=== PATIENT | male | born 1955 | race African-American/Black ===

== ENCOUNTER 2017-06-10 15:15 | Observation (INO) | payer MEDICARE, MEDICAID ==
--- NOTE | 2017-06-10 16:14 | RAD ---
SINGLE VIEW OF THE CHEST: Comparison: 07-20-15 History: Chest pain radiating to the left arm. FINDINGS: Single view of the chest shows a normal sized cardiomediastinal silhouette. There is no evidence of c onsolidation, mass, or pleural effusion. The bones are unremarkable. IMPRESSION: No evidence of acute cardiopulmonary disease. POS: [facility]
[2017-06-10 16:40] LABS: #Basophils 0.1 thou/uL (0.0-0.2); #Eosinphils 0.1 thou/uL (0.0-0.7); #Lymphocytes 2.6 thou/uL (1.20-3.40); #Monocytes 0.6 thou/uL (0.11-0.59); #Neutrophils 2.9 thou/uL (1.40-6.50); %Basophils 1.1 % (0.0-1.0); %Eosinophils 1.5 % (0.0-10.0); %Lymphocytes 40.9 % (21.0-51.0); %Monocytes 10.2 % (0.0-10.0); Hematocrit 42.7 % (42.0-52.0); Mean Platelet Volume 6.7 fL (7.4-10.4); Red Blood Cell (RBC) Count 5.05 mill/uL (4.70-6.10); White Blood Cell (WBC) Count 6.2 thou/uL (4.8-10.8)
[2017-06-10 17:02] LABS: ALT (SGPT) 31 U/L (8-55); AST (SGOT) 21 U/L (5-34); Alkaline Phosphatase 112 U/L (40-150); Anion Gap 14 mmol/L (10-20); BUN (Urea Nitrogen) 18 mg/dL (8.4-25.7); Bilirubin, Total 0.3 mg/dL (0.2-1.2); CK (CPK) 292 U/L (30-200); Calc. Creatinine Clearance 0 mL/min (70-130); Calcium 9.5 mg/dL (7.8-10.44); Carbon Dioxide 26 mmol/L (23-31); Chloride 103 mmol/L (98-107); Estimated GFR-MDRD 81; Globulin 3.7 g/dL (2.4-3.5)
[2017-06-10 17:06] LABS: Troponin I Less than 0.010 ng/mL (< 0.028)
[2017-06-10] MEDS ORDERED: Ondansetron HCl/PF 4 MG/2 ML Vial IVP PRN (19:05)
[2017-06-10] MEDS ORDERED: Ondansetron ODT 4 MG TAB SL PRN (19:05)
[2017-06-10] MEDS ORDERED: HYDROcodone/Acetaminophen 5/325 mg Tablet PO PRN (19:53)
[2017-06-10] MEDS ORDERED: Acetaminophen 325 MG TAB PO PRN (19:53)
[2017-06-10] MEDS ORDERED: Nitroglycerin 0.4 MG TAB (25 Tab Bottle) PO PRN (19:53)
[2017-06-10] MEDS ORDERED: Insulin Regular 300 UNITS/3 ML VIAL SC PRN (20:03)
[2017-06-10] MEDS ORDERED: Dextrose 50% Abboject 50 ML SYRINGE SLOW IVP PRN (20:03)
[2017-06-10] MEDS ORDERED: Dextrose 5% in Water 1,000 ML IV PRN (20:03)
[2017-06-10 20:15] VITALS: BMI 38.7
[2017-06-10 20:37] LABS: Troponin I Less than 0.010 ng/mL (< 0.028)
[2017-06-10] MEDS ORDERED: Atorvastatin Calcium 40 MG TAB PO SCH (21:00)
[2017-06-10] MEDS: Famotidine 20 MG TAB PO SCH (21:21)
[2017-06-10] MEDS: Glimepiride 1 MG TAB PO SCH (21:21)
--- NOTE | 2017-06-10 22:00 | HP ---
DATE OF ADMISSION: 06/10/2017 ADMITTING PHYSICIAN: Mele Valladares M.D. PRIMARY CARE PHYSICIAN: Rafiq. CHIEF COMPLAINT: Left shoulder and chest pain. HISTORY OF PRESENT ILLNESS: The patient is a 62-year-old male with known history of coronary artery disease, diabetes, and dyslipidemia. The patient reports that he came in because he has been experie ncing left shoulder pain, neck pain, and epigastric pain for 3 to 4 days. The patient reports that t he left arm and shoulder pain is made worse by elevating his left arm. This is reproducible on my ex am, he is unable to lift his arm above approximately 75 degrees because of pain that he feels in the shoulder as well as the neck. He reports this is consistent with the pain that brought him in, but shai perez reports a different pain in the epigastric area that is described as sharp and constant for approxi mately 2 to 3 days. He also reports some shortness of breath and some diaphoresis. He denies nausea and vomiting. REVIEW OF SYSTEMS: The following complete review of systems was negative, unless otherwise mentioned in the HPI or below: Constitutional: Weight loss or gain, sense of well-being, ability to conduct usual activities, exerc ise tolerance. Skin/Breast: Rash, itching, changes in hair growth or loss, nail changes, breast lumps, tenderness, swelling, nipple discharge. Eyes: Vision, double vision, tearing, blind spots, pain. ENT/Mouth: Headaches (location, time of onset, duration, precipitating factors), vertigo, lightheade dness, injury. Vision, double vision, tearing, blind spots, pain, nose bleeding, colds, obstruction, discharge, dental difficulties, gingival bleeding, dentures, neck stiffness, pain, tenderness, masses in thyroid or other areas. Cardiovascular: Precordial pain, substernal distress, palpitations, syncope, dyspnea on exertion, or thopnea, nocturnal paroxysmal dyspnea, edema, cyanosis, hypertension, heart murmurs, varicosities, ph lebitis, claudication. Respiratory: Pain, shortness of breath, wheezing, stridor, cough, hemoptysis, fever or night sweats. Gastrointestinal: Poor appetite, dysphagia, indigestion, abdominal pain, heartburn, eructation, naus ea, vomiting, hematemesis, jaundice, constipation, or diarrhea, abnormal stools (cindy-colored, tarry, bloody, greasy, foul smelling), flatulence, hemorrhoids, recent changes in bowel habits. Genitourinary: Urgency, frequency, dysuria, nocturia, hematuria, polyuria, oliguria, unusual (or rigoberto nge in) color of urine, stones, hesitancy, change in size of stream, dribbling, acute retention or in continence, libido, potency. Musculoskeletal: Pain, swelling, redness or heat of muscles or joints, limitation, of motion, muscul ar weakness, atrophy, cramps. Neurologic/Psychiatric: Convulsions, paralyses, tremor, incoordination, paresthesias, difficulties w ith memory of speech, sensory or motor disturbances, or muscular coordination (ataxia, tremor), emoti onal problems, anxiety, depression, previous psychiatric care, unusual perceptions, hallucinations. Allergy/Immunologic: Skin rash, anemia, bleeding tendency, polydipsia, polyuria, intolerance to heat or cold. PAST MEDICAL HISTORY: Significant for diabetes type 2, hypertension, coronary artery disease with st ent placement and obesity. PAST SURGICAL HISTORY: None. PSYCHIATRIC HISTORY: Includes depression. SOCIAL HISTORY: He denies drug use, alcohol use and no smoking. HOME MEDICATIONS: Please see medication rec list. DRUG ALLERGIES: No known drug allergies. PHYSICAL EXAMINATION: VITAL SIGNS: Temperature of 98.0, blood pressure 136/84, pulse 74, respirations 20, satting 96% on r oom air. GENERAL: He is in no acute distress, nontoxic, pleasant, cooperative. HEENT: Normocephalic, atraumatic. EYES: PERRL. Extraocular muscles intact. NECK: No JVD, no cervical adenopathy. Full range of motion. LUNGS: Clear to auscultation bilaterally. CARDIAC: Regular rate and rhythm with a 2/6 systolic ejection murmur. ABDOMEN: Morbidly obese, but nontender, nondistended, positive bowel sounds. EXTREMITIES: No clubbing, cyanosis or edema. NEUROLOGIC: Full range of motion of all extremities, no focal deficits. Alert and oriented x3. LABORATORY DATA AND IMAGES: CBC shows a white count of 6.2, hemoglobin 14.1, hematocrit 42.7, platel ets 218,000. Cardiac enzymes, creatine kinase 292, CK-MB 2.6, troponin I less than 0.01 x2. Albumin 4.3. BMP shows a sodium of 139, potassium 3.9, chloride 103, BUN 18, creatinine 1.12, glucose 317. Chest x-ray shows a normal size cardiomediastinal silhouette. No evidence of consolidation, mass or pleural effusion. ASSESSMENT: 1. Chest pain, rule out acute coronary syndrome. 2. Diabetes type 2, uncontrolled. 3. Hypertension. 4. Coronary artery disease. PLAN: The patient will be admitted to observation. We will perform additional cardiac enzymes to ru le out acute coronary syndrome. In light of the reproducible pain exacerbated by left arm movement, this is most likely musculoskeletal in nature. The patient also has a history of GERD and has been t reated with H2 inhibitors. We will give the patient IV Pepcid to assist in alleviating the epigastri c pain. Cardiology will be consulted if deemed necessary.
[2017-06-10 22:50] LABS: Troponin I Less than 0.010 ng/mL (< 0.028)
[2017-06-11 05:18] LABS: #Basophils 0.1 thou/uL (0.0-0.2); #Eosinphils 0.1 thou/uL (0.0-0.7); #Lymphocytes 2.3 thou/uL (1.20-3.40); #Monocytes 0.6 thou/uL (0.11-0.59); #Neutrophils 2.4 thou/uL (1.40-6.50); %Basophils 1.4 % (0.0-1.0); %Eosinophils 2.2 % (0.0-10.0); %Lymphocytes 41.9 % (21.0-51.0); %Monocytes 10.4 % (0.0-10.0); Hematocrit 40.2 % (42.0-52.0); Mean Platelet Volume 6.9 fL (7.4-10.4); Red Blood Cell (RBC) Count 4.75 mill/uL (4.70-6.10); White Blood Cell (WBC) Count 5.5 thou/uL (4.8-10.8)
[2017-06-11 05:27] LABS: Anion Gap 10 mmol/L (10-20); BUN (Urea Nitrogen) 13 mg/dL (8.4-25.7); Calc. Creatinine Clearance 135 mL/min (70-130); Calcium 9.1 mg/dL (7.8-10.44); Carbon Dioxide 26 mmol/L (23-31); Chloride 105 mmol/L (98-107); Estimated GFR-MDRD Greater than 90
[2017-06-11 07:42] VITALS: BP 135/78; TEMP 98.2
[2017-06-11] MEDS: Famotidine 20 MG TAB PO SCH (08:45)
[2017-06-11] MEDS: Glimepiride 1 MG TAB PO SCH (08:45)
[2017-06-11] MEDS ORDERED: Losartan Potassium 25 MG TAB PO SCH (09:00)
[2017-06-11] MEDS ORDERED: Alogliptin 25 MG TAB PO SCH (09:00)
[2017-06-11] MEDS ORDERED: Clopidogrel Bisulfate 75 MG TAB PO SCH (09:00)
--- NOTE | 2017-06-11 12:35 | PDOC.EVN ---
Event Note - Event Note Event Note: Pt left AMA today before I could see him.
--- NOTE | 2017-06-19 16:01 | EKG ---
Test Reason : Blood Pressure : / mmHG Vent. Rate : 082 BPM Atrial Rate : 082 BPM P-R Int : 176 ms QRS Dur : 084 ms QT Int : 360 ms P-R-T Axes : 050 -11 -04 degrees QTc Int : 420 ms Normal sinus rhythm Nonspecific T wave abnormality No STEMI Abnormal ECG Confirmed by PERRY BAZAN, KIRAN ([id number]), editor newspaper AILEEN CEBALLOS ([id number]) on 06/19/2017 4:00:55 PM Referred By: Confirmed By:KIRAN AMADOR MD
== END 2017-06-11 12:05 | disposition left against medical advice (07) ==
LOC: ERS 15:15 → 2SW 18:54
PROVIDERS: ADMIT Internal Medicine Addiction Medicine; ATTEND Internal Medicine Addiction Medicine
DX: R07.89 Other chest pain (principal); Z53.21 Procedure and treatment not carried out due to patient leaving prior to being seen by health care provider; I25.10 Atherosclerotic heart disease of native coronary artery without angina pectoris; I10 Essential (primary) hypertension; E11.65 Type 2 diabetes mellitus with hyperglycemia; E78.5 Hyperlipidemia, unspecified; K21.9 Gastro-esophageal reflux disease without esophagitis; F32.9 Major depressive disorder, single episode, unspecified; E66.9 Obesity, unspecified; Z68.38 Body mass index [BMI] 38.0-38.9, adult; Z79.84 Long term (current) use of oral hypoglycemic drugs; Z79.899 Other long term (current) drug therapy; Z95.5 Presence of coronary angioplasty implant and graft
CPT/HCPCS: 71010; 80048; 80053; 82550; 82553; 82962 ×2; 83880; 84484 ×2; 85025 ×2; 93005; 94760; 96360; 99285; G0378; 36415; 36416; A4216

== ENCOUNTER 2017-09-09 07:52 | Outpatient (CLI) | payer MEDICARE, MEDICAID ==
--- NOTE | 2017-09-09 09:32 | MRI ---
MRI LUMBAR SPINE: DATE: 09/09/17. PROVIDED CLINICAL HISTORY: Low back pain. FINDINGS: Comparison is made with the study dated 02/26/16. Five lumbar vertebral bodies are again seen. Lumba r alignment remains normal. Vertebral body heights appear preserved. No focal concerning regional m arrow signal abnormality is apparent. The visualized extraspinal soft tissues appear unremarkable. The conus medullaris is normal in signal and terminates at an appropriate level. At L1-2, there is no significant central canal or foraminal narrowing apparent. At L2-3, there is no significant central canal or foraminal narrowing apparent. At L3-4, there is mild bilateral facet arthritis without significant central canal or foraminal narro wing. At L4-5, there is bilateral facet arthritis without significant foraminal or canal narrowing apparent . At L5-S1, there is conspicuity to the epidural fat which circumferentially attenuates the thecal sac, similar to the prior examination. There is a broad-based disk bulge which does not further attenuat e the thecal sac. There is bilateral facet arthritis. There is mild bilateral foraminal narrowing. IMPRESSION: Lower lumbar spine facet arthritis and caudal epidural lipomatosis, appearing similar to the prior [facility]. POS: [facility]
--- NOTE | 2017-09-09 10:24 | MRI ---
MRI OF CERVICAL SPINE WITHOUT CONTRAST: DATE: 09/09/17. COMPARISON: 02/26/16. HISTORY: Chronic neck pain radiating down both shoulders and arms for 4 years. TECHNIQUE: Multiplanar, multisequence MR imaging of the cervical spine is provided without contrast media. FINDINGS: The sagittal STIR imaging demonstrates no focal area of osseous marrow edema. Incompletely imaged encephalomalacia/volume loss is noted within the cerebellar hemisphere on the lef t, a stable finding. There is moderate degenerative change at the atlantoaxial interspace. The craniocervical junction ap pears intact. There is straightening of the normal cervical lordosis. There is no anterolisthesis or retrolisthesi s present. C2-3: There is disk desiccation. There is no central canal stenosis. There is bilateral facet and uncovertebral osteophyte formation, left greater than right, with mild left neural foraminal stenosis . No significant right neural foraminal stenosis. C3-4: There is disk desiccation and mild disk bulge with partial effacement of the ventral thecal sa c and mild central canal stenosis. There is mild facet and uncovertebral osteophyte formation, left greater than right. There is mild to moderate left neural foraminal stenosis. No right neural kenny inal stenosis. C4-5: There is disk space narrowing, disk desiccation, anterior osteophyte formation, and disk bulge . This effaces the ventral thecal sac. There is a superimposed central disk protrusion which abuts the ventral aspect of the cervical cord. This is similar when compared to the prior examination and leads to a mild/moderate degree of central canal stenosis. Bilateral facet and uncovertebral osteoph yte formation noted, left greater than right. Mild right and severe left neural foraminal stenosis n oted. C5-6: There is disk space narrowing, disk desiccation, and disk bulge present. There is a right par acentral/right foraminal disk protrusion, similar when compared to the prior exam. There is prominen t bilateral facet and uncovertebral osteophyte formation. There is moderate central canal stenosis, especially laterally on the right. There is severe bilater al neural foraminal stenosis, left greater than right. C6-7: There is disk space narrowing and disk desiccation with mild disk bulge and partial effacement of the ventral thecal sac with associated mild central canal stenosis. There is prominent left face t and uncovertebral osteophyte formation with severe left neural foraminal stenosis. There is mild t o moderate right neural foraminal stenosis on the basis of osteophyte formation. C7-T1: Bilateral facet and uncovertebral osteophyte formation with mild bilateral neural foraminal s tenosis. No significant central canal stenosis. There is no abnormal signal intensity identified within the cervical cord. IMPRESSION: Multilevel degenerative change as described above, with multiple areas of associated central canal an d neural foraminal stenosis. POS: [facility]
== END 2017-09-09 07:53 | disposition home or self-care (01) ==
LOC: SCSMRI 07:52
PROVIDERS: ATTEND Pain Medicine Interventional Pain Medicine
DX: M54.2 Cervicalgia (principal); M54.5 Low back pain; M47.892 Other spondylosis, cervical region; M47.896 Other spondylosis, lumbar region; M48.02 Spinal stenosis, cervical region; E88.2 Lipomatosis, not elsewhere classified
CPT/HCPCS: 72141; 72148

== ENCOUNTER 2018-11-09 08:04 | Outpatient (CLI) | payer MEDICARE, MEDICAID ==
--- NOTE | 2018-11-09 08:33 | RAD ---
EXAM: 5 views of the cervical spine HISTORY: Cervical stenosis and radicular pain COMPARISON: None FINDINGS: AP, lateral, swimmer's, and flexion/extension views of the cervical spine shows normal heig ht and alignment of the vertebral bodies and intervertebral discs without fracture or subluxation. Degenerative changes are seen in the mid to lower cervical spine with anterior osteophytes present. A lignment is unchanged with flexion and extension. No prevertebral soft tissue swelling is seen. IMPRESSION: Degenerative changes of the lower cervical spine with unchanged alignment with bending
--- NOTE | 2018-11-09 10:15 | MRI ---
MRI CERVICAL SPINE WITHOUT CONTRAST: HISTORY: M54.12, cervical radicular pain. COMPARISON: Cervical spine MRI from 2018. Radiograph of same day. FINDINGS: There is a low-grade increased T2 signal within the cord at the level of C4-5. Cerebellar tonsils te rminate at the level of the foramen magnum. No paraspinal adenopathy. Paraspinal musculature is normal. There is encephalomalacia inferior left cerebellum, likely prior vascular infarct. No marrow infiltrative process. Levels are as follows: C2-3: Circumferential disk bulge. Mild facet arthrosis. No neural foraminal or spinal canal narrow ing. C3-4: Moderate disk desiccation. Circumferential disk-osteophyte complex greatest in the left later al recess and subforaminal zone. Moderate to severe left and mild right neural foraminal narrowing. Moderate left facet arthropathy. There is minimal effacement of the CSF space. C4-5: Circumferential disk-osteophyte complex. In the central and bilateral paracentral zones, ther e is abutment of the cord. There is spinal canal narrowing to approximately 5 mm. There is extensio n of the posterior disk-osteophyte complex in the left lateral recess and subforaminal zones with sev ere left-sided neural foraminal narrowing. Moderate facet arthropathy contributing to this neural fo raminal narrowing. Mild right-sided neural foraminal narrowing. C5-6: Circumferential disk-osteophyte complex. This is greatest in the central and bilateral subfor aminal zones. Moderate facet arthrosis. There is abutment of the cord. The spinal canal is narrowe d to approximately 7 mm. There is moderate to severe bilateral neural foraminal narrowing, worse on the left. C6-7: Circumferential disk-osteophyte complex greatest in the left subforaminal and extraforaminal z one. Severe left-sided neural foraminal narrowing. Moderate right-sided neural foraminal narrowing. Moderate bilateral facet arthropathy. Mild effacement of the ventral CSF space of the spinal canal measuring approximately 8 mm. IMPRESSION: Multilevel neural foraminal and spinal canal narrowing as described with cord abutment as well as low -grade increased T2 signal within the cord at the level of C4-5. POS: [facility]
== END 2018-11-09 08:05 | disposition home or self-care (01) ==
LOC: BICMRI 08:04
PROVIDERS: ATTEND Neurological Surgery
DX: M47.22 Other spondylosis with radiculopathy, cervical region (principal); M50.20 Other cervical disc displacement, unspecified cervical region; M48.02 Spinal stenosis, cervical region
CPT/HCPCS: 72050; 72141

== ENCOUNTER 2019-03-13 07:53 | Outpatient (CLI) | payer MEDICARE, MEDICAID ==
[2019-03-13 11:47] LABS: Hemoglobin 13.9 g/dL (14.0-18.0); Mean Corpuscular HGB CONC 33.1 g/dL (32.0-36.0); Mean Corpuscular Hemoglobin 27.5 pg (27.0-31.0); Mean Corpuscular Volume 83.1 fL (78.0-98.0); Platelet Count 223 thou/uL (130-400); RBC Distribution Width 13.4 % (11.5-14.5); Red Blood Cell (RBC) Count 5.07 mill/uL (4.70-6.10); White Blood Cell (WBC) Count 7.3 thou/uL (4.8-10.8)
[2019-03-13 11:53] LABS: PTT 27.6 SEC (22.9-36.1); Prothrombin Time 13.4 SEC (12.0-14.7)
== END 2019-03-13 07:54 | disposition home or self-care (01) ==
LOC: LABBT 07:53
PROVIDERS: ATTEND Neurological Surgery
DX: Z01.812 Encounter for preprocedural laboratory examination (principal); M50.10 Cervical disc disorder with radiculopathy, unspecified cervical region; M50.00 Cervical disc disorder with myelopathy, unspecified cervical region
CPT/HCPCS: 85027; 85610; 85730

== ENCOUNTER 2019-03-13 08:30 | Inpatient (IN) | payer MEDICARE, MEDICAID ==
--- NOTE | 2019-03-13 07:37 | HP ---
HISTORY OF PRESENT ILLNESS: Mr. Candelaria is a 64-year-old male, who reports to our office for evaluation of upper and lower extremity pain. 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 The patient states it is a pain from top of the spine to the bottom of his feet and states it is equal on both sides and there is numbness and tingling. He states that he has pain in his low back, back of both legs to the bottom and top of his feet. He has numbness and tingling in his toes. The patient states that the pain gets in the way of daily activities. Walking is worse and lying down is best. The patient states that there is pain down the back of both arms to fingertips. He has decreased sensation of pinky, compared to right. The patient has had injections in the low back with Dr. Damon. REVIEW OF SYSTEMS: A 10-point review of systems has been completed and is negative other than stated in the above HPI. PAST MEDICAL HISTORY: Depression, hypertension, diabetes, cardiovascular disease, osteoarthritis, shoulder pain, hyperlipidemia, anxiety, history of stroke. PAST SURGICAL HISTORY: Right shoulder surgery, cardiac stents placed. FAMILY HISTORY: Father is , diagnosed with heart disease, stroke. Mother is , diagnosed with heart disease, stroke. SOCIAL HISTORY: The patient is a former smoker. Denies alcohol or drug use. He is single and not working currently. MEDICATIONS: 1. Aspirin. 2. Carbamazepine. 3. Tizanidine. 4. . 5. Lipitor. 6. Doxepin. 7. Bupropion. ALLERGIES: NO KNOWN DRUG ALLERGIES. PHYSICAL EXAMINATION: CONSTITUTIONAL: The patient is alert and oriented x3, appears nontoxic. RESPIRATIONS: Normal work of breathing on room air. NECK: Soft, supple. No masses are noted. Range of motion is intact and nonpainful. NEUROLOGIC: Awake, alert, oriented x3. Memory, attention, fund of knowledge normal. Cranial nerves 2 through 12 were tested and intact. Upper extremities, 5/5 strength in bilateral deltoids, biceps, triceps, wrist extension, finger extension, finger intrinsics. Decreased sensation in left pinky compared to right. Reflexes symmetric. Spurling is positive. Left positive Tinel's, ulnar and median bilaterally. Lower extremity 5/5 bilateral strength, hip flexion, hip extension, knee flexion, knee extension, dorsiflexion, plantar flexion, EHL. No radiculopathy. Positive single leg raise left rotation tender to palpate lumbar spine. Patellar reflexes. No Babinski. No clonus. Gait and station, sit to standing normal. Normal gait. IMAGING: MRI cervical spine, herniated nucleus pulposus with stenosis C4 through C6, foraminal stenosis C6-C7. Flexion-extension x-rays, no instability seen on cervical spine. ASSESSMENT AND PLAN: Cervical stenosis with myelopathy. Dr. Wills has offered ACDF C4-C5, C5-C6 and C6-C7. The patient states that he understands risks of the procedure and is willing to proceed. Job ID: [id number]
[2019-03-13 10:48] VITALS: BMI 37.1
[2019-03-14] MEDS ORDERED: Sodium Chloride 0.9% 20 ML ONE (06:17)
[2019-03-14] MEDS ORDERED: Thrombin 5000 UNITS/5 ML VIAL ONE (06:17)
[2019-03-14 06:41] LABS: Anion Gap 12 mmol/L (10-20); BUN (Urea Nitrogen) 24 mg/dL (8.4-25.7); Calc. Creatinine Clearance 92 mL/min (70-130); Carbon Dioxide 23 mmol/L (23-31); Chloride 108 mmol/L (98-107); Estimated GFR-MDRD 73; Glucose 206 mg/dL (80-115); Potassium 3.8 mmol/L (3.5-5.1); Sodium 139 mmol/L (136-145)
[2019-03-14] MEDS ORDERED: SUGAMMADEX SODIUM 200 MG/2 ML VIAL ONE (06:47)
[2019-03-14] MEDS ORDERED: Fentanyl 100 MCG/2 ML VIAL ONE ×2 (07:14→12:54)
[2019-03-14] MEDS ORDERED: Bupivacaine HCl 0.5%/Epinephrine 1:200,000/PF 30 ml Vial ONE (10:44)
[2019-03-14] MEDS ORDERED: Rocuronium Bromide 50 MG/5 ML VIAL ONE (11:23)
[2019-03-14] MEDS ORDERED: Mag-Al 1200 mg/1200 mg/30 ML UDCUP PO PRN (13:51)
[2019-03-14] MEDS ORDERED: Milk Of Magnesia 30 ML UDCUP PO PRN (13:51)
[2019-03-14] MEDS ORDERED: diphenhydrAMINE 25 MG CAP PO PRN (13:51)
[2019-03-14] MEDS ORDERED: traMADol HCl 50 MG TAB PO PRN (13:51)
[2019-03-14] MEDS ORDERED: tiZANidine HCl 4 MG TAB PO PRN (13:51)
[2019-03-14] MEDS ORDERED: diphenhydrAMINE 50 MG/ML VIAL IVP PRN (13:51)
[2019-03-14] MEDS ORDERED: Ondansetron PF 4 MG/2 ML Vial IVP PRN (13:51)
[2019-03-14] MEDS ORDERED: Promethazine 25 MG TAB PO PRN (13:51)
[2019-03-14] MEDS ORDERED: Tamsulosin HCl 0.4 MG CAP PO PRN (13:51)
[2019-03-14] MEDS ORDERED: Morphine 2 MG/ML SYRINGE SLOW IVP PRN (13:51)
[2019-03-14] MEDS ORDERED: Promethazine HCl 25 MG/ML VIAL IM PRN (13:51)
[2019-03-14] MEDS ORDERED: Bisacodyl 10 MG SUPP PR PRN (13:51)
[2019-03-14] MEDS ORDERED: Acetaminophen/Codeine 30-300mg Tablet PO PRN ×2 (13:51)
[2019-03-14] MEDS ORDERED: Acetaminophen 325 MG TAB PO PRN (13:51)
[2019-03-14] MEDS ORDERED: HYDROcodone/Acetaminophen 10/325 mg Tablet PO PRN (13:55)
[2019-03-14] MEDS ORDERED: PROVENTIL INHALER 6.7 G (200 INHALATIONS) INH PRN (13:55)
--- NOTE | 2019-03-14 15:27 | OP ---
DATE OF PROCEDURE: 03/14/2019 VEST MAKER: Nayeli Green PA-C. PREOPERATIVE INDICATION: Prevent neurological deterioration. PREOPERATIVE DIAGNOSES: Cervical intervertebral disk disease with cord compression and myelopathy as well as cervical radiculopathy, C4-C5, C5-C6, C6-C7. POSTOPERATIVE DIAGNOSES: Cervical intervertebral disk disease with cord compression and myelopathy as well as cervical radiculopathy, C4-C5, C5-C6, C6-C7. PROCEDURES PERFORMED: 1. Anterior cervical diskectomy, intervertebral arthrodesis, 2. placement of intervertebral corticocancellous autograft, 3. harvest of hip graft, 4. anterior cervical plating, C4-C5, C5-C6, and C6-C7. 2. Local morselized autograft and morselized allograft placed around the hip graft. 3. Operating microscope. PREOPERATIVE MEDICATIONS: Ancef 2 g IV. DRAIN NUMBER: Zero. DRAIN TYPE: None. DESCRIPTION OF PROCEDURE: The patient was seen in the preoperative area. [employer] , his insurance company, has refused approval for placement of a PEEK interbody device. Machined cadaveric allograft was unavailable at this hospital. We offered the patient the use of fibular allograft we can cut to size, or autologous hip graft , and he wanted to proceed with hip autograft. This made some sense given his diabetes and he understood the extra time and risks of the procedure. After that discussion, we took him to the operating room. General endotracheal anesthesia was induced. The patient was carefully positioned on the operating table with his head supported by a donut-shaped headrest. A lateral fluoro radiograph was used to plan our neck incision. We planned out the hip incision over the superior portion of the iliac crest on the right side. The right side of the neck and the right hip was sterilely prepped and draped. We opened our neck incision with a 15 blade knife and controlled bleeding with bipolar cautery. We dissected sharply to the platysma and cut this muscle in line with our incision. We continued our dissection medial to the sternocleidomastoid and lateral to the trachea and esophagus. We arrived to the prevertebral space. We placed a marker on the spine and took a lateral fluoro radiograph to confirm the levels upon which we were operating. It was quickly obvious we had to separate the omohyoid muscle, so we did so and tagged it with sutures. We carefully dissected inferiorly all the way to C7 and superiorly to the top of C4. We mobilized the longus colli muscles and placed self-retaining retractors beneath them. We placed distraction pins at C4 and C6 and distracted across both of these intervening interspaces. We incised the interspaces with a 15 blade knife and removed disk contents using curettes and rongeurs. As we approached the posterior longitudinal ligament, we brought the operating microscope into the field. Under microscopic magnification and using microsurgical techniques, we removed the remainder of the intervertebral disk. We removed posterior osteophytes. We decompressed the dura from one neural foramen all the way to the other across the entire C4-C5 and C5-C6 interspaces respectively. We controlled the epidural bleeding with small pledgets of Gelfoam and prepared the endplates for grafting. We measured the height of the interspace to 8 mm at C4-C5 and 6 mm at C5-C6. We then turned our attention to harvesting the hip graft. Sterile sponges were left in the neck. We turned our attention to the hip. We opened our skin incision with a 10 blade knife and controlled bleeding with bipolar cautery. We dissected through subcutaneous tissue to the periosteum over the iliac crest. We made sure not to approach the anterior superior iliac spine, but from a 0.2 cm to a 0.5 cm behind that, we elevated the periosteum medially and laterally over the iliac crest with an oscillating saw. We created the ends of our hip graft with the osteotome, we fractured it off the ilium in a controlled fashion. We removed our hip graft, where there was extensive bony bleeding. We used Gelfoam to control, which was quite easily done. We infused local anesthetic in the surrounding musculature and left some local anesthetic on a sterile sponge in the wound while we shaped our hip graft. Using oscillating saw and a cutting table, we cut 2 portions of our hip grafts for placement into the intervertebral space. One was 8 mm tall and the other was 6. Both were shaped with lordosis. They were both advanced into their respective interspaces under radiographic guidance to the appropriate depth. We made sure of this depth by shaping our grafts, the same size as our trial devices for our PEEK spacers. We entered the intervertebral grafts in place. We removed our distraction pin from C4 and we removed our lateral retractors under the longus colli muscles to C6-C7. We placed a distraction pin at C7 and distracted across the C6-C7 interspace. We incised the interspace with a 15 blade knife and removed disk contents using curettes and rongeurs. We brought the operative microscope back into the field to remove the posterior longitudinal ligament, the posterior osteophytes, and decompress from one neural foramen all the way to the other across the entire C6-C7 interspace. The left neural foramen was particularly tight and required significant work on uncovertebral joint. At the completion of our decompression there, a small ball probe could pass out the foramen without anymore impingement. We turned our attention to arthrodesis. We prepared the endplates for grafting, measured the height of the interspace to 6.5 mm. The appropriate thickness bone graft was cut off our hip graft bone on the back table. We shaped it into lordosis and advanced it into the interspace under guidance to the appropriate depth. We used our trials from our PEEK devices to ensure that the depth of the appropriate. With the interbody graft in place, we removed our distraction pins. The operative microscope was taken out of the field. A 45-mm anterior cervical plate was brought into the field. We drilled harbor boat pilot holes through the plate into the vertebral bodies at C4, C5, C6, and C7, and we affixed the plate using 14-mm screws. We used fixed angle screws at C7 and variable angle screws at C4, C5, and C6. We engaged the locking mechanism over each of the 8 screws. AP and lateral fluoro radiographs confirmed adequate positioning of our instrumentation. We irrigated the wound copiously with bacitracin irrigation. We reattached the omohyoid muscles. We closed our cervical wound in anatomical layers. In a similar fashion, we closed the hip wound 1st by reapproximating the fascia over the bone and then closed in subcutaneous tissues and skin. Two clean dressings were applied. This was a clean case, no contamination. ADDENDUM: After the hip graft and interbody grafts were placed, and distraction pins were removed, a mixture of demineralized bone matrix and morselized autograft was placed into the interspaces on either side of the hip graft to promote fusion. The demineralized bone matrix was the allograft, and our morselized autograft came from the osteophytes removed during decompression, which were cleaned of soft tissue attachments, then morselized into the demineralized bone matrix. Job ID: [id number] [id number]
[2019-03-14] MEDS: Sodium Chloride 0.9% 1,000 ML IV SCH (18:03)
[2019-03-14] MEDS: CEFAZOLIN 2 GM in Premix Bag 1 BAG IVPB SCH ×2 (18:03→22:09)
[2019-03-14] MEDS: Morphine 4 MG/ML VIAL SLOW IVP PRN ×2 (18:09→22:15)
[2019-03-14] MEDS: traMADol HCl 50 MG TAB PO PRN (20:48)
[2019-03-14] MEDS ORDERED: FLUoxetine HCl 20 MG CAP PO SCH (21:00)
[2019-03-14] MEDS ORDERED: Atorvastatin Calcium 10 MG TAB PO SCH (21:00)
[2019-03-14] MEDS ORDERED: Dextrose 50% Abboject 50 ML SYRINGE SLOW IVP PRN (22:07)
[2019-03-14] MEDS ORDERED: HumaLOG 300 UNITS/3 ML VIAL SC PRN (22:07)
[2019-03-14] MEDS ORDERED: Dextrose 5% in Water 1,000 ML IV PRN (22:07)
[2019-03-15] MEDS ORDERED: tiZANidine HCl 4 MG TAB PO PRN (00:04)
--- NOTE | 2019-03-15 00:11 | CON ---
DATE OF CONSULTATION: 03/14/2019 PRIMARY CARE PHYSICIAN: Yusra Fields MD REASON FOR CONSULTATION: Medical management. REASON FOR ADMISSION: Status post anterior cervical spine diskectomy. HISTORY OF PRESENT ILLNESS: Mr. Candelaria is a pleasant 64-year-old gentleman, who has been admitted following anterior cervical spine surgery. He had cervical intervertebral disk disease with cord compression and myelopathy as well as cervical radiculopathy involving C4-C5, C5-C6, and C6-C7. Today, he underwent anterior cervical diskectomy with intervertebral arthrodesis and anterior cervical plating. The patient has been referred for medical management of comorbidities. He is known to have a history of type 2 diabetes and hypertension. Following surgery, his blood pressure has been elevated at 174/90. He was given morphine for his pain and blood pressure came down to the 150s. He normally takes Cozaar 50 mg p.o. daily for blood pressure and missed that dose this morning. At present, he reports having improvement in his pain since morphine and otherwise is without any complaints. Denies having any chest pain, palpitations, or shortness of breath. Denies any headaches or dizziness. No blurred vision. He does have pain associated with the surgery, but it is improved to about 3/10, at this present time. The patient has a known history of coronary artery disease and has had stents placed in the past. This was done by Dr. Carlin, whom he sees regularly. He last saw him approximately 2 months ago. The patient is without any major complaints at this time. ALLERGIES: NO KNOWN DRUG ALLERGIES. CURRENT MEDICATIONS: 1. Albuterol sulfate. 2. Fluoxetine. 3. Glimepiride. 4. Hydrocodone. 5. Cozaar. 6. Simvastatin. PAST MEDICAL HISTORY: 1. Hypertension. 2. Type 2 diabetes mellitus. 3. Hyperlipidemia. 4. Asthma. 5. Obesity. 6. GERD. 7. Depression. 8. Osteoarthritis. 9. Anxiety. 10. History of stroke. PAST SURGICAL HISTORY: 1. Cardiac stents x2. 2. Bilateral rotator cuff surgery. 3. Anterior cervical spine diskectomy. FAMILY HISTORY: His father who is , was diagnosed with heart disease and stroke. His mother who was also was diagnosed with heart disease as well and stroke. SOCIAL HISTORY: The patient denies any tobacco use. He did smoke previously. Denies any alcohol or drug use. He is . PHYSICAL EXAMINATION: GENERAL: The patient appears well developed, well nourished, is in no acute distress. VITAL SIGNS: Temperature 98.3, pulse 98, respirations 16, O2 saturation 98% on room air, blood pressure 152/96. HEENT: Normocephalic and atraumatic. Pupils are equal, round, and reactive to light. Sclerae without icterus. Oropharynx is clear. NECK: Supple. Some discomfort associated with surgery. Dressing in place. LUNGS: Clear to auscultation bilaterally without any wheezes, rales, or rhonchi. CARDIAC: Notable for murmur. The patient states this is long-standing. ABDOMEN: Soft, nontender, and nondistended. Normoactive bowel sounds present. Obese. EXTREMITIES: Lower extremities, no lower leg swelling or edema. Mechanical SCDs in place. NEUROLOGIC: Alert and oriented x3. SKIN: Without rash or jaundice. LABORATORY DATA: Sodium 139, potassium 3.8, chloride 108, BUN 24, creatinine 1.21, GFR 73, glucose 171, and calcium 9. IMPRESSION AND PLAN: Mr. Candelaria is a very pleasant 64-year-old gentleman, who has been admitted following anterior cervical spine diskectomy, who has been referred for medical management of the followin. Type 2 diabetes mellitus. We will hold his glimepiride. We will cover him with an insulin sliding scale and continue to monitor blood glucose. 2. Hypertension. Has improved with pain control. We will resume his Cozaar in the morning. Continue to monitor blood pressure. 3. Hyperlipidemia. Resume home medications. He is on simvastatin 20 mg p.o. at bedtime. 4. Gastroesophageal reflux disease. No PPIs taken at home. We will give famotidine. 5. Pain. As per Neuro Team. 6. Code status: Full. His surrogate decision maker is his , Melissa Candelaria. The patient's case was discussed with Dr. Mcintyre, who agrees with the plan of care as described above. Thank you for the consultation. We will continue to follow this patient. Job ID: [id number]
[2019-03-15] MEDS: Sodium Chloride 0.9% 1,000 ML IV SCH ×2 (01:52→17:21)
[2019-03-15 05:40] LABS: #Lymphocytes 1.5 thou/uL (1.20-3.40); #Monocytes 1.4 thou/uL (0.11-0.59); #Neutrophils 7.5 thou/uL (1.40-6.50); %Basophils 0.1 % (0.0-1.0); %Eosinophils 0.1 % (0.0-10.0); %Lymphocytes 14.7 % (21.0-51.0); Hemoglobin 11.9 g/dL (14.0-18.0); Mean Corpuscular HGB CONC 33.2 g/dL (32.0-36.0); Mean Corpuscular Hemoglobin 28.4 pg (27.0-31.0); Mean Corpuscular Volume 85.5 fL (78.0-98.0); Mean Platelet Volume 7.3 fL (7.4-10.4); Platelet Count 212 thou/uL (130-400); RBC Distribution Width 13.6 % (11.5-14.5); White Blood Cell (WBC) Count 10.4 thou/uL (4.8-10.8)
[2019-03-15 05:54] LABS: Anion Gap 13 mmol/L (10-20); BUN (Urea Nitrogen) 21 mg/dL (8.4-25.7); Calc. Creatinine Clearance 95 mL/min (70-130); Calcium 8.3 mg/dL (7.8-10.44); Carbon Dioxide 24 mmol/L (23-31); Chloride 105 mmol/L (98-107); Estimated GFR-MDRD 76; Glucose 229 mg/dL (80-115); Potassium 3.7 mmol/L (3.5-5.1); Sodium 138 mmol/L (136-145)
[2019-03-15] MEDS: HumaLOG 300 UNITS/3 ML VIAL SC PRN ×2 (06:14→12:42)
[2019-03-15] MEDS: traMADol HCl 50 MG TAB PO PRN (06:24)
--- NOTE | 2019-03-15 06:34 | PRG ---
DATE OF SERVICE: 03/15/2019 I saw, Aakash Candelaria in his hospital room this morning. He is status post three-level ACDF with hip graft rather than PEEK interbody devices. Mr. Candelaria has hip flexor pain and iliac crest pain, which has limited his walking yesterday. He has a sore throat, but he was able to have some food yesterday and I watched him drink some water this morning without coughing. Mr. Candelaria stated that his neck and arms feel better than they have in quite some time and he is pleased with those results of the operation. Blood pressure has been high. It is now in the 150s over 80s. There has been no fever recorded. His neurological examination shows good strength around. He has good hip flexor strength, but it is a little painful for him to test. Our plan is for Mr. Candelaria to get up out of bed and move around this morning. Work with Physical therapy up to lunchtime and leave after lunch, if he is independent for activities of daily living. Job ID: [id number] [facility]
[2019-03-15] MEDS ORDERED: Losartan 25 MG TAB PO SCH (09:00)
[2019-03-15] MEDS ORDERED: Famotidine/PF 20 mg/2ml Vial SLOW IVP SCH (09:00)
--- NOTE | 2019-03-15 14:11 | PDOC.HOSPP ---
- Subjective Encounter Date: 03/15/19 Encounter Time: 14:09 Subjective: Mr. Candelaria was seen today in follow-up for medical management following ACD. He notes some difficulty with swallowing solid foods. He is able to swallow liquids. - Objective Vital Signs & Weight: Vital Signs (12 hours) Temp Pulse Resp BP Pulse Ox 03/15/19 11:00 98.0 F 90 20 167/80 H 96 03/15/19 08:00 97 03/15/19 03:57 97.8 F 100 16 153/81 H 98 Weight Weight 230 lb I&O: 03/14/19 03/15/19 03/16/19 06:59 06:59 06:59 Intake Total 1580 300 Output Total 1850 Balance -270 300 Result Diagrams: 03/15/19 04:47 03/15/19 04:47 Additional Labs: Accuchecks 03/15/19 03/15/19 03/14/19 11:17 05:57 21:25 POC Glucose 212 H 211 H 249 H Hospitalist ROS - Medication Medications: Active Medications Generic Name Dose Route Start Last Admin Trade Name Freq PRN Reason Stop Dose Admin Acetaminophen/Codeine Phosphate 2 tab 03/14/19 13:51 03/15/19 09:58 Tylenol #3 PO 2 tab Q3H PRN Administration Moderate Pain (4-6) Atorvastatin Calcium 10 mg 03/14/19 21:00 03/14/19 20:43 Lipitor PO 10 mg HS MARILIN Administration Famotidine 20 mg 03/15/19 09:00 03/15/19 09:56 Pepcid SLOW IVP 20 mg Q12HR MARILIN Administration Fluoxetine HCl 20 mg 03/14/19 21:00 03/14/19 20:43 Prozac PO 20 mg HS MARILIN Administration Sodium Chloride 1,000 mls @ 75 mls/hr 03/14/19 14:00 03/15/19 01:52 Normal Saline 0.9% IV 1,000 mls .[id number] MARILIN Administration Insulin Human Lispro 0 units 03/14/19 22:07 03/15/19 12:42 Humalog SC 3 unit .MILD SLIDING SCALE PRN Administration Mild Correctional Scale Insulin Human Lispro 0 units 03/14/19 22:07 03/14/19 22:22 Humalog SC 2 unit .BEDTIME SLIDING SC PRN Administration Bedtime Correctional Scale Losartan Potassium 50 mg 03/15/19 09:00 03/15/19 09:56 Cozaar PO 50 mg QAM MARILIN Administration Morphine Sulfate 4 mg 03/14/19 13:51 03/14/19 22:15 Morphine SLOW IVP 4 mg Q1H PRN Administration Severe Breakthrough Pain Tramadol HCl 100 mg 03/14/19 13:51 03/15/19 06:24 Ultram PO 100 mg Q6H PRN Administration Moderate Pain (4-6) - Exam Eye: PERRL, anicteric sclera ENT: normocephalic atraumatic, no oropharyngeal lesions Heart: RRR, murmur present, III/IV (radiating to axilla) Respiratory: no rales, no ronchi, normal chest expansion, wheezes (+ occasional wheeze) Gastrointestinal: soft, non-tender, non-distended, normal bowel sounds, no palpable masses, no hepatomegaly, no splenomegaly, no bruit Extremities: no cyanosis, no clubbing, no edema Hosp A/P (1) Diabetes mellitus type 2 in obese Code(s): E11.69 - TYPE 2 DIABETES MELLITUS WITH OTHER SPECIFIED COMPLICATION; E66.9 - OBESITY, UNSPECIFIED Status: Chronic (2) CAD (coronary artery disease) Code(s): I25.10 - ATHSCL HEART DISEASE OF [place] CORONARY ARTERY W/O ANG PCTRS Status: Chronic (3) HTN (hypertension) Code(s): I10 - ESSENTIAL (PRIMARY) HYPERTENSION Status: Chronic (4) Cervical spinal stenosis Code(s): M48.02 - SPINAL STENOSIS, CERVICAL REGION Status: Chronic - Plan * HTN- blood pressure is a bit elevated- will continue Losartan and add Hydralazine as needed * DM- blood glucose is a bit elevated- will add a low dose long acting insulin * CAD- stable * s/p Anterior cervical diskectomy- as per NS
[2019-03-15] MEDS ORDERED: hydrALAZINE 20 MG/ML VIAL SLOW IVP PRN (14:14)
[2019-03-15 15:27] VITALS: BP 168/89; TEMP 97.8
[2019-03-15] MEDS ORDERED: Insulin Glargine 15 UNITS in Pre-Filled Syringe SC SCH (21:00)
== END 2019-03-15 17:25 | disposition home or self-care (01) | DRG 472 ==
LOC: SURG A 03-14 05:32 → SJJU 03-14 17:52
PROVIDERS: ADMIT Neurological Surgery; ATTEND Neurological Surgery
PROC: 0RG20A0 Fusion of 2 or more Cervical Vertebral Joints with Interbody Fusion Device, Anterior Approach, Anterior Column, Open Approach (ICD-10-PCS; principal; 2019-03-14)
PROC: 0RB30ZZ Excision of Cervical Vertebral Disc, Open Approach (ICD-10-PCS; 2019-03-14)
PROC: 0QB23ZZ Excision of Right Pelvic Bone, Percutaneous Approach (ICD-10-PCS; 2019-03-14)
PROC: 01N10ZZ Release Cervical Nerve, Open Approach (ICD-10-PCS; 2019-03-14)
PROC: 00NW0ZZ Release Cervical Spinal Cord, Open Approach (ICD-10-PCS; 2019-03-14)
DX: M50.123 Cervical disc disorder at C6-C7 level with radiculopathy (principal); M50.023 Cervical disc disorder at C6-C7 level with myelopathy; M50.00 Cervical disc disorder with myelopathy, unspecified cervical region; M48.02 Spinal stenosis, cervical region; M25.78 Osteophyte, vertebrae; I10 Essential (primary) hypertension; R78.5 Finding of other psychotropic drug in blood; J45.909 Unspecified asthma, uncomplicated; E66.9 Obesity, unspecified; I25.10 Atherosclerotic heart disease of native coronary artery without angina pectoris; E11.69 Type 2 diabetes mellitus with other specified complication; K21.9 Gastro-esophageal reflux disease without esophagitis; F32.9 Major depressive disorder, single episode, unspecified; M19.90 Unspecified osteoarthritis, unspecified site; F41.9 Anxiety disorder, unspecified; Z95.5 Presence of coronary angioplasty implant and graft; Z79.51 Long term (current) use of inhaled steroids; Z79.84 Long term (current) use of oral hypoglycemic drugs; Z79.899 Other long term (current) drug therapy; Z68.37 Body mass index [BMI] 37.0-37.9, adult; M50.10 Cervical disc disorder with radiculopathy, unspecified cervical region; Z01.812 Encounter for preprocedural laboratory examination
CPT/HCPCS: 36415; 36416; 76000; 80048; 85025; 85027; 85610; 85730; C1713; J0670; J0690; J1815; J2270; J3010; J3370; J3490; L0174; S0028

== ENCOUNTER 2020-07-31 08:58 | Outpatient (CLI) | payer MEDICARE, MEDICAID ==
--- NOTE | 2020-07-31 10:00 | RAD ---
CERVICAL SPINE 4 VIEWS: Date: 07/31/2020 HISTORY: Neck pain, bilateral upper extremity radiculopathy. FINDINGS: Anterior diskectomy and fusion hardware is present at the C4-5/C5-6/C6-7 level. The lateral neutral e xam demonstrates no anterolisthesis or retrolisthesis. Flexion and extension imaging demonstrates no anterolisthesis or retrolisthesis either. There is no prevertebral soft tissue swelling. There is dis c space narrowing at C4-5. The frontal imaging demonstrates significant bilateral mid and lower cervical spine facet and uncover tebral osteophyte formation bilaterally. IMPRESSION: Degenerative and postoperative change involving the cervical spine as detailed above. POS: [facility]
== END 2020-07-31 08:59 | disposition home or self-care (01) ==
LOC: BICRAD 08:58
PROVIDERS: ATTEND Neurological Surgery
DX: M54.2 Cervicalgia (principal); M47.812 Spondylosis without myelopathy or radiculopathy, cervical region; Z98.890 Other specified postprocedural states
CPT/HCPCS: 72050